=== PATIENT | female | born 1990 | race Two or more races ===

== ENCOUNTER 2023-08-16 10:31 | Outpatient (CLI) | payer OTHER, SELFPAY ==
--- NOTE | ~2023-08-16 | CT_ITS ---
EXAMINATION: CT sinus wo con DATE: 08/16/2023 11:19 INDICATION: Chronic sinusitis, unspecified TECHNIQUE: Computed tomography (CT) of the paranasal sinuses was performed without intravenous contra st. The dose-length product (DLP) was 379.18 mGy-cm. Iterative reconstruction was used. COMPARISON: None FINDINGS: There is normal development and pneumatization of the paranasal sinuses. There is mild muco laney thickening inferiorly in the left maxillary sinus. The frontal, sphenoid, ethmoid, and right maxi llary sinuses are clear. The bilateral ostiomeatal complexes are patent. Visualized soft tissues are unremarkable. There are 5 mm of rightward deviation of the nasal septum. IMPRESSION: 1. Mild mucosal thickening in the left maxillary sinus. Reviewed, dictated and finalized at location L. [facility] [employer] [facility]
== END 2023-08-16 10:32 | disposition home or self-care (01) ==
PROVIDERS: Visit Provider Otolaryngology
DX: J32.9 Chronic sinusitis, unspecified (principal); J34.2 Deviated nasal septum
CPT/HCPCS: 70486